=== PATIENT | female | born 1960 | race Caucasian/White ===

== ENCOUNTER 2021-06-18 07:34 | Day surgery (SDC) | payer MEDICARE, MEDICAID, SELFPAY ==
--- NOTE | 2021-06-18 07:45 | EKG12_ITS ---
Test Reason : PREOP Blood Pressure : / mmHG Vent. Rate : 068 BPM Atrial Rate : 068 BPM P-R Int : 176 ms QRS Dur : 088 ms QT Int : 444 ms P-R-T Axes : 051 145 080 degrees QTc Int : 472 ms Normal sinus rhythm Low voltage QRS Confirmed by ADAM MARIE, LUZ MARINA ([id number]), rewrite editor HALI SNYDER ([id number]) on 06/21/2021 7:08:45 AM Referred By: Denys Vasquez Confirmed By:LUZ MARINA MEDINA MD
[2021-06-18 08:03] VITALS: BP 169/96; PULSE 66; RESP 18; TEMP 36.1; O2SAT 100; BMI 37.4
[2021-06-18] MEDS: Ciprofloxacin 0.3% 2.5ml Bottle 1 DRP (09:43)
--- NOTE | 2021-06-18 09:47 | PCM.DC ---
Discharge Instructions Diet Discharge Diet: No restrictions Activity Discharge Activity: Return to Normal Activity Dressing / Incision Call your doctor if your incision/area has: Foul Smelling Discharge Additional Dressing/Incision Instructions:: 4 drops to each ear twice daily for three days Follow Up Care Please Follow Up With: Denys Vasquez MD When: 3 weeks Test Results: Test results from this visit will be discussed in further detail at your follow-up appointment, if applicable. Discharge Plan Admission Attending Provider: Denys Vasquez Primary Care Provider: Paula Rod Discharge Orders/Prescriptions Prescriptions: No Action naproxen 375 mg tablet 375 mg PO DAILY RF: 0 nicotine 14 mg/24 hr patch 24 hour 1 patch transdermal DAILY RF: 0 albuterol sulfate 2.5 mg /3 mL (0.083 %) solution for nebulization 2.5 mg continuous nebulization DAILY PRN PRN (Reason: breathing) RF: 0 tizanidine 4 mg tablet 4 mg PO DAILY PRN PRN (Reason: muscle relaxant) RF: 0 sumatriptan succinate 100 mg tablet 100 mg PO DAILY PRN PRN (Reason: Headache) RF: 0 ropinirole 3 mg tablet 3 mg PO 4X/DAY RF: 0 lorazepam 0.5 mg tablet 0.5 mg PO DAILY PRN PRN (Reason: Anxiety) RF: 0 meclizine 25 mg tablet 25 mg PO DAILY PRN PRN (Reason: Vertigo) RF: 0 levothyroxine 200 mcg tablet 200 mcg PO DAILY RF: 0 albuterol sulfate 90 mcg/actuation HFA aerosol inhaler 1 puff INHALATION DAILY RF: 0 fluoxetine 20 mg capsule 60 mg PO DAILY RF: 0 Myrbetriq 50 mg tablet extended release 24 hr 50 mg PO DAILY RF: 0 Trelegy Ellipta 200-62.5-25 mcg blister with device 1 ea INHALATION DAILY RF: 0 Disposition Discharge Orders: Discharge Patient (Routine); Ordered 06/18/21 Ordered By: Dr. Denys Vasquez
--- NOTE | 2021-06-18 09:48 | PCM.OPRPT ---
Problems Associated Problem List Diagnoses (1) Chronic serous OM (otitis media): Report of Operation Date of Procedure: 06/18/21 Pre-Operative Diagnosis: chronic serous otitis media, right and left Post-Operative Diagnosis: chronic serous otitis media, right and left Surgery/Procedure Performed:: placement pressure equalization tubes, right and left ears Surgeon: Denys Vasquez Type of Anesthesia: General Description of Procedure: on the day of the procedure, after appropriate informed consent was obtained, the patient was brought to the operating room and placed in supine position on the operating table. she was placed under general intravenous anesthesia, and an LMA was placed. the left ear was examined with the binocular operating microscope. a speculum was placed. the tympanic membrane was viewed in its entirety and found to be intact. a radial myringotomy was made inferiorly and a serous effusion was suctioned. a T tube was placed. the right ear was examined with the binocular operating microscope. a speculum was placed. the tympanic membrane was viewed in its entirety and found to be intact. a radial myringotomy was made inferiorly and a serous effusion was suctioned. a T tube was placed. she was awoken from anesthesia and transferred to the PACU in stable condition.
[2021-06-18 10:00] VITALS: BP 129/95; BP 169/96; PULSE 71; RESP 16; TEMP 36.3; O2SAT 99
[2021-06-18 10:15] VITALS: BP 120/83; BP 169/96; PULSE 74; RESP 16; TEMP 36.3; O2SAT 100
[2021-06-18 10:38] VITALS: BP 169/96
== END 2021-06-18 10:51 | disposition home or self-care (01) ==
LOC: SDC 07:43 → AC 07:43
PROVIDERS: PCP Family Medicine; Referring Provider Otolaryngology; Visit Provider Otolaryngology
PROC: (CPT 69799; principal; 2021-06-18 08:55)
DX: H65.23 Chronic serous otitis media, bilateral (principal); H69.83 Other specified disorders of Eustachian tube, bilateral; H90.6 Mixed conductive and sensorineural hearing loss, bilateral; E07.9 Disorder of thyroid, unspecified; J44.9 Chronic obstructive pulmonary disease, unspecified; M19.90 Unspecified osteoarthritis, unspecified site; F31.9 Bipolar disorder, unspecified; F20.9 Schizophrenia, unspecified; F17.210 Nicotine dependence, cigarettes, uncomplicated; Z20.822 Contact with and (suspected) exposure to COVID-19; Z99.81 Dependence on supplemental oxygen; Z79.899 Other long term (current) drug therapy; Z86.73 Personal history of transient ischemic attack (TIA), and cerebral infarction without residual deficits
CPT/HCPCS: 00126; 69436; 87426; 93005; C9803; J7120

== ENCOUNTER 2021-06-24 05:41 | Emergency (ER) | payer MEDICARE, MEDICAID, SELFPAY ==
[2021-06-24 05:42] VITALS: PULSE 103; RESP 14; TEMP 36.3; O2SAT 93; BMI 37.0
--- NOTE | 2021-06-24 05:56 | RAD_ITS ---
STUDY: X-RAY CHEST REASON FOR EXAM: Female, 60 years old patient with dyspnea. TECHNIQUE: Single AP portable view of the chest. COMPARISON: Prior comparison studies are not available for review at this time. FINDINGS: Cardiac monitoring leads are present. The lungs are expanded. There is mild prominence of bronchovascular markings. There is questionable left-sided pleural effusion. There is heterogeneous right basilar airspace disease. There is mild cardiac enlargement. Normal mediastinum and tony. Normal visualized pulmonary arteries. Normal visualized aortic arch and descending thoracic aorta. Normal visualized thoracic spine. There are old left-sided rib fractures. There is no demonstrated abnormality of the visualized soft tissue structures of the upper abdomen. RAD/Chest 1 View (Portable) IMPRESSION: 1. Right basilar airspace disease could represent pneumonia. 2. Cardiomegaly. Electronically Signed: Janet Damon MD at 6:43 EDT , Service support ,
--- NOTE | 2021-06-24 05:56 | EKG12_ITS ---
Test Reason : SOB Blood Pressure : / mmHG Vent. Rate : 103 BPM Atrial Rate : 096 BPM P-R Int : 192 ms QRS Dur : 090 ms QT Int : 424 ms P-R-T Axes : 000 121 088 degrees QTc Int : 555 ms Sinus Rhythm Otherwise normal ECG Confirmed by MARYLOU MARIE, KILEY ([id number]), proposal editor MAXI MONCADA ([id number]) on 06/25/2021 2:02:48 PM Referred By: ÁLVARO Confirmed By:KILEY HICKMAN MD
--- NOTE | 2021-06-24 05:57 | EDS_ITS ---
HPI History of Present Illness Chief Complaint: Shortness of Breath Detail of Chief Complaint: Shortness of breath that started 3 4 days ago. Informant: patient Narrative Narrative: Patient presents to the emergency department from home with complaint of increasing shortness of breath over the last 3 to 4 days. Patient has history of COPD and thinks she has a flare. Patient normally on 3 L of O2 at home. He has had minimal cough. She denies fever. She denies chest pain. Patient has not had the Covid vaccine. She denies any exposures to Covid. She denies recent travel or surgery. On EMS arrival patient was noted to be 95% on her 3 L. Patient was given a aerosol by squad as well as Solu-Medrol 125 mg IV. Patient also complaining of restless legs and states that she has been without her medication and is having hard time sleeping. Prior similar symptoms: [facility] Medical History (Updated 06/24/21 @ 06:[address] Celso Navarro, DO) Arthritis Bipolar disorder COPD (chronic obstructive pulmonary disease) Easy bruising Edentulous Excessive bleeding Gastric reflux History of edema History of electroconvulsive therapy History of IBS History of stress test Lupus Migraine headache Nicotine dependence On home oxygen therapy Schizophrenia Shortness of breath on exertion Stroke/cerebrovascular accident TBI (traumatic brain injury) Thyroid disease TIA (transient ischemic attack) Uses wheelchair Wears glasses Home Medications albuterol sulfate 1 puff INHALATION DAILY 06/12/21 [History Last Taken Unknown] albuterol sulfate 2.5 mg CONTINUOUS NEBULIZATION DAILY PRN PRN 06/12/21 [History Last Taken Unknown] fluoxetine 60 mg PO DAILY 06/12/21 [History Last Taken Unknown] aqlkkshrynu-krruzomdz-tnodwili [Trelegy Ellipta] 1 ea INHALATION DAILY 06/12/21 [History Last Taken Unknown] levothyroxine 200 mcg PO DAILY 06/12/21 [History Last Taken 06/18/21 04:00] lorazepam 0.5 mg PO DAILY PRN PRN 06/12/21 [History Last Taken Unknown] meclizine 25 mg PO DAILY PRN PRN 06/12/21 [History Last Taken Unknown] mirabegron [Myrbetriq] 50 mg PO DAILY 06/12/21 [History Last Taken Unknown] naproxen 375 mg PO DAILY 06/12/21 [History Last Taken Unknown] nicotine 1 patch TRANSDERMAL DAILY 06/12/21 [History Last Taken Unknown] ropinirole 3 mg PO 4X/DAY 06/12/21 [History Last Taken Unknown] sumatriptan succinate 100 mg PO DAILY PRN PRN 06/12/21 [History Last Taken Unknown] tizanidine 4 mg PO DAILY PRN PRN 06/12/21 [History Last Taken Unknown] doxycycline monohydrate 100 mg PO BID #14 capsule 06/24/21 [Rx Last Taken Unknown] prednisone 20 mg PO BID #10 tab 06/24/21 [Rx Last Taken Unknown] ropinirole 4 mg PO TID #90 tab 06/24/21 [Rx Last Taken Unknown] Allergy/AdvReac Type Severity Reaction Status Date / Time morphine Allergy PT UNSURE Verified 06/12/21 14:38 OF REACTION Penicillins [PCN] Allergy PT UNSURE Verified 06/12/21 14:38 OF REACTION Surgical History (Updated 06/12/21 @ 14:49 by Jenn iFnney) History of History of myringotomy History of neck surgery History of surgery on arm History of surgery on wrist History of tonsillectomy Social History Smoking Status: Current every day smoker tobacco type: cigarettes ROS ROS ED Constitutional Constitutional ED: Reports systems reviewed and no addt'l complaints, except as documented; Denies body ache(s), change in weight or chills Eyes Eyes: Denies acute decrease in peripheral vision, change in vision, double vision or loss of vision ENT ENT ED: Reports none; Denies ear pain, lip swelling, loss taste/smell, neck pain, otalgia or sore throat Cardiovascular Cardiovascular: Reports none; Denies abdominal pain, chest pain with activity, leg edema, lightheadedness, palpitations, rapid heart rate or syncope Respiratory/Chest Respiratory/Chest: Reports none, cough and dyspnea; Denies change in mental status, dry cough, hemoptysis, shortness of breath at rest or shortness of breath with exertion Gastrointestinal Gastrointestinal: Reports none; Denies abdominal pain, change in stool character, diarrhea, hematemesis, hematochezia, melena, rectal bleeding or vomiting Genitourinary Genitourinary ED: Reports none; Denies abdominal discomfort, anuria, dysuria, genital pain or polyuria Musculoskeletal Musculoskeletal: Reports none; Denies arthralgias, back pain, difficulty walking, extremity pain, muscle weakness or myalgias Integumentary Reports none; Denies abscess or rash Neurologic Neurologic: Reports none; Denies abnormal gait, confusion, focal weakness, frequent falls, headache(s), loss of vision, numbness, paresthesias, radicular pain, vertigo or weakness Psychiatric Psychiatric: Reports systems reviewed and no addt'l complaints, except as documented and none; Denies behavioral changes, confusion, difficulty concentrating, hallucinations, suicidal ideation, tactile hallucinations or visual hallucinations Endocrine Endocrinology: Denies none, cold intolerance, excessive sweating, fatigue or heat intolerance Hematologic/Lymphatic Hematologic/Lymphatic: Reports none; Denies anemia, easy bleeding or easy bruising Allergic/Immunologic Allergic/Immunologic ED: Denies as per HPI, none, lip swelling, mouth swelling, throat swelling, tongue swelling or hives EXAM Physical Exam Const Vital Signs: 06/24/21 05:42 06/24/21 05:50 06/24/21 06:02 Temperature 97.4 F L 97.4 F L Temperature Source Temporal Temporal Pulse Rate 103 H 103 H Respiratory Rate 14 14 Respiratory Pattern Tachypnea Blood Pressure 163/104 H Blood Pressure Mean 123 Pulse Ox 93 93 Oxygen Delivery Method Nasal Cannula Nasal Cannula Oxygen Flow Rate (L/min) 3 3 06/24/21 06:14 Temperature Temperature Source Pulse Rate 99 Respiratory Rate 20 H Respiratory Pattern Blood Pressure Blood Pressure Mean Pulse Ox Oxygen Delivery Method Oxygen Flow Rate (L/min) Positive well nourished and well developed General Appearance ED: well developed and NAD HEENT Reports TM's clear and moist mucous membranes normocephalic and atraumatic; Negative for trauma or tenderness Tympanic Membrane ED: Yes TM's clear Eyes PERRL and EOMs intact bilaterally General Eye ED: Negative for pale conjunctiva or scleral icterus Neck no lymphadenopathy, supple and no JVD General: Negative for tenderness Chest Wall inspection of chest normal and palpation of chest normal Chest: Negative for tenderness Resp clear to auscultation bilaterally Resp Narrative: Patient with tachypnea and some mild conversational dyspnea. No accessory muscle use or retractions. Effort and Inspection: Negative for respiratory distress or pain with movement Auscultation: wheezes; Negative for rhonchi or diminished lung sounds Cardio regular rate, regular rhythm, S1 normal heart sound, S2 normal heart sound and no murmurs Peripheral Pulses: pulses 2+ throughout GI normal to inspection, nondistended, normoactive bowel sounds, soft to palpation, non-tender, non-distended and no masses Back/Spine no CVA tenderness and no thoracic nor lumbar tenderness Extremity normal to inspection General Extremety ED: Negative for edema General Extremity: Negative for edema Neuro oriented x3, CN's II-XII intact bilaterally, no sensory deficits noted and gait normal Sensorium / Orientation: awake, alert, oriented to person, oriented to place and oriented to time Motor Exam: strength 5/5 throughout and strength abnormal Psych mental status grossly normal Skin no rashes or lesions noted and no wounds MDM MDM MDM Narrative Medical decision making narrative: Patient received DuoNeb aerosol on arrival. Patient had received Solu-Medrol by EMS. EKG obtained showed sinus tachycardia with a ventricular rate of 103 bpm with no acute ST segment changes. Because of the patient's respiratory effort and the fact that she would not sit there was a lot of artifact noted. Labs were unremarkable. COVID-19 test was negative. I suspect patient likely has a COPD exacerbation. She will be started on doxycycline and prednisone. Patient also ran out of her repair and all and will be given a prescription for that. Patient to follow-up with her primary care physician 3 to 5 days. She is advised to return if increasing shortness of breath or condition should worsen anyway. On repeat examination she was feeling improved. She is in no respiratory distress. I feel she can be safely discharged to home. She is advised to return if increasing shortness of breath or condition worsen anyway. Lab Data Attestation: I reviewed the patient's lab results. Labs: Laboratory Results - last 24 hr 06/24/21 06/24/21 05:15 05:15 WBC 8.5 RBC 3.40 L Hgb 10.7 L Hct 32.7 L MCV 96.2 MCH 31.5 MCHC 32.7 RDW Std Deviation 46.6 H RDW Coeff of Joby 13.2 Plt Count 313 MPV 8.8 Immature Gran % (Auto) 0.200 Neut % (Auto) 63.6 Lymph % (Auto) 23.6 [place] % (Auto) 7.3 Eos % (Auto) 4.6 Baso % (Auto) 0.7 Absolute Neuts (auto) 5.4 Absolute Lymphs (auto) 2.01 Nucleated RBC % 0 Sodium 135 L Potassium 4.2 Chloride 99 Carbon Dioxide 31.0 Anion Gap 5 BUN 23 H Creatinine 1.32 H Estim Creat Clear Calc 36.74 Est GFR (MDRD) Af Amer 53 L Est GFR (MDRD) Non-Af 44 L BUN/Creatinine Ratio 17.4 Glucose 98 Calcium 9.0 Troponin I High Sens 8 Radiography Chest X-Ray - ED: 1 View Diagnostic Testing: Radiology Impression Chest X-Ray 06/24/21 05:56 IMPRESSION: 1. Right basilar airspace disease could represent pneumonia. 2. Cardiomegaly. Electronically Signed: Janet Damon MD at 6:43 EDT , Service support , 1 view chest x-ray obtained interpreted by myself as no acute disease process. Radiologist felt patient may have a right basilar airspace disease which could represent pneumonia. EKG Initial EKG: Attestation: I personally reviewed and interpreted this EKG as follows: Comments: Sinus rhythm with a ventricular rate of 103 bpm with no acute ST segment changes. Discharge Plan Triage Chief Complaint: Shortness of Breath ED Provider: Celso Navarro Dx/Rx/DC Orders Clinical Impression: COPD exacerbation, Restless legs syndrome Prescriptions: New doxycycline monohydrate 100 MG capsule 100 mg PO BID Qty: 14 RF: 0 prednisone 20 mg tablet 20 mg PO BID Qty: 10 RF: 0 ropinirole 4 mg tablet 4 mg PO TID Qty: 90 RF: 0 No Action naproxen 375 mg tablet 375 mg PO DAILY RF: 0 nicotine 14 mg/24 hr patch 24 hour 1 patch transdermal DAILY RF: 0 albuterol sulfate 2.5 mg /3 mL (0.083 %) solution for nebulization 2.5 mg continuous nebulization DAILY PRN PRN (Reason: breathing) RF: 0 tizanidine 4 mg tablet 4 mg PO DAILY PRN PRN (Reason: muscle relaxant) RF: 0 sumatriptan succinate 100 mg tablet 100 mg PO DAILY PRN PRN (Reason: Headache) RF: 0 ropinirole 3 mg tablet 3 mg PO 4X/DAY RF: 0 lorazepam 0.5 mg tablet 0.5 mg PO DAILY PRN PRN (Reason: Anxiety) RF: 0 meclizine 25 mg tablet 25 mg PO DAILY PRN PRN (Reason: Vertigo) RF: 0 levothyroxine 200 mcg tablet 200 mcg PO DAILY RF: 0 albuterol sulfate 90 mcg/actuation HFA aerosol inhaler 1 puff INHALATION DAILY RF: 0 fluoxetine 20 mg capsule 60 mg PO DAILY RF: 0 Myrbetriq 50 mg tablet extended release 24 hr 50 mg PO DAILY RF: 0 Trelegy Ellipta 200-62.5-25 mcg blister with device 1 ea INHALATION DAILY RF: 0 Primary Care Provider: Paula Rod Referrals: Paula Rod DO [Primary Care Provider] - 3-5 Days Disposition Disposition: Home, Self Care
[2021-06-24 06:02] VITALS: BP 163/104; PULSE 103; RESP 14; TEMP 36.3; O2SAT 93
[2021-06-24] MEDS: Pramipexole Di-HCl 0.5 MG Tablet 1.5 MG PO (06:08)
[2021-06-24] MEDS: Ipratropium/Albuterol Sulfate 3 ML AMPUL.NEB INHALATION (06:13)
[2021-06-24 06:14] VITALS: PULSE 99; RESP 20
[2021-06-24 06:18] LABS: Absolute Lymphocyte Count 2.01 X10^3/uL (0.83-4.51); Absolute Neutrophil Count 5.4 X10^3/uL (2.0-7.7); Basophil# 0.06 X10^3/uL; Basophil% 0.7 % (0-1); Eosinophil# 0.39 X10^3/uL; Eosinophils% 4.6 % (0-5); Hematocrit 32.7 % (37-47); Hemoglobin 10.7 g/dL (12.0-15.0); Lymphocyte # 2.01 X10^3/ul (0.83-4.51); Lymphocyte % 23.6 % (19-41); Mean Corp Hgb Conc 32.7 g/dL (32-36); Mean Corpuscular Hgb 31.5 pg (27.0-32.0); Mean Corpuscular Volume 96.2 fL (81-99); Mean Platelet Vol. 8.8 fl (6.2-12.0); Monocyte# 0.62 X10^3/uL; Monocyte% 7.3 % (0-10); NRBC Flagged by Analyzer 0 % (0-5); Neutrophil # 5.43 X10^3/uL (2.7-7.7); Neutrophil % 63.6 % (47-70); Platelet Count 313 K/mm3 (150-450); RBC Distribution Width CV 13.2 % (11.6-14.6); RBC Distribution Width SD 46.6 fl (35.1-43.9); White Blood Count 8.5 K/mm3 (4.4-11.0)
[2021-06-24 06:32] LABS: Anion Gap 5 (5-15); BUN 23 mg/dL (7-18); BUN/Creat Ratio 17.4 RATIO (10-20); Chloride 99 mmol/L (98-107); Creatinine, Serum 1.32 mg/dL (0.55-1.02); EST Glomerular Filtration Rate 44 mL/min (>60); Est Glom Filt Rate - Afr Amer 53 mL/min (>60); Estimated Creatinine Clearance 36.74 ml/min; Glucose 98 mg/dL (74-106); Potassium 4.2 mmol/L (3.5-5.1); Sodium Level 135 mmol/L (136-145); Troponin-I HS 8 pg/mL (3.0-54.0)
[2021-06-24] MEDS: Albuterol 2.5 MG/3 ML VIAL.NEB. INHALATION ×2 (06:58)
[2021-06-24 07:01] VITALS: PULSE 95; RESP 15
--- NOTE | 2021-06-24 07:26 | NURSING ---
CALLED [facility], ETA IS 30
[2021-06-24] MEDS: Doxycycline 100 MG CAPSULE PO (07:29)
[2021-06-24 07:42] VITALS: BP 130/95; PULSE 101; RESP 24; O2SAT 100
== END 2021-06-24 07:43 | disposition home or self-care (01) ==
PROVIDERS: Emergency Provider Emergency Medicine; PCP Family Medicine
DX: J44.1 Chronic obstructive pulmonary disease with (acute) exacerbation (principal); G25.81 Restless legs syndrome; K21.9 Gastro-esophageal reflux disease without esophagitis; M19.90 Unspecified osteoarthritis, unspecified site; F31.9 Bipolar disorder, unspecified; Z79.52 Long term (current) use of systemic steroids; F17.210 Nicotine dependence, cigarettes, uncomplicated; Z99.81 Dependence on supplemental oxygen; Z79.899 Other long term (current) drug therapy; Z86.73 Personal history of transient ischemic attack (TIA), and cerebral infarction without residual deficits
CPT/HCPCS: 71045; 80048; 84484; 85025; 87426; 93005; 94640; 99285

== ENCOUNTER 2021-10-31 15:59 | Emergency (ER) | payer MEDICARE, MEDICAID, SELFPAY ==
[2021-10-31] VITALS (7 sets, daily range): BP systolic 112–136; BP diastolic 82–97; PULSE 50–64; RESP 12–22; TEMP -17.7–33.4; O2SAT 97–100
[2021-10-31] MEDS: Etomidate 20 MG/10 ML Vial IV (16:14)
[2021-10-31] MEDS: Rocuronium Bromide 50 MG/5 ML Vial 80 MG IV (16:15)
--- NOTE | 2021-10-31 16:19 | EKG12_ITS ---
Test Reason : BURN Blood Pressure : / mmHG Vent. Rate : 062 BPM Atrial Rate : 062 BPM P-R Int : 166 ms QRS Dur : 092 ms QT Int : 492 ms P-R-T Axes : 044 112 038 degrees QTc Int : 499 ms Normal sinus rhythm Low voltage QRS Borderline ECG Confirmed by MARYLOU MARIE, KILEY ([id number]), newspaper or periodical editor HALI SNYDER ([id number]) on 11/04/2021 11:52:56 AM Referred By: TL Confirmed By:KILEY HICKMAN MD
[2021-10-31] MEDS: Lactated Ringers 1,000 ML 999 ML IV (16:20)
--- NOTE | 2021-10-31 16:25 | NURSING ---
[facility], [facility], CALLED. PATIENT GOING TO [facility] ETA IS 1 HR
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
--- NOTE | 2021-10-31 16:30 | ED.RN ---
perr dr Paul warm blankets applied to try to warm patient up, states not to bother with bear hugger since patient will be leaving soon.
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
--- NOTE | 2021-10-31 16:30 | NURSING ---
GOING TO [facility]
[2021-10-31] MEDS: Propofol 10MG/Ml 1,000 MG/100 ML Bottle 6.3 MG CONT INF (16:40)
[2021-10-31 16:57] LABS: Absolute Lymphocyte Count 0.69 X10^3/uL (0.83-4.51); Absolute Neutrophil Count 2.2 X10^3/uL (2.0-7.7); Basophil# 0.02 X10^3/uL; Basophil% 0.6 % (0-1); Eosinophil# 0.08 X10^3/uL; Eosinophils% 2.5 % (0-5); Hematocrit 34.9 % (37-47); Hemoglobin 10.9 g/dL (12.0-15.0); Lymphocyte # 0.69 X10^3/ul (0.83-4.51); Lymphocyte % 21.6 % (19-41); Mean Corp Hgb Conc 31.2 g/dL (32-36); Mean Corpuscular Hgb 30.2 pg (27.0-32.0); Mean Corpuscular Volume 96.7 fL (81-99); Mean Platelet Vol. 9.4 fl (6.2-12.0); Monocyte% 6.3 % (0-10); NRBC Flagged by Analyzer 0 % (0-5); Neutrophil # 2.18 X10^3/uL (2.7-7.7); Neutrophil % 68.4 % (47-70); Platelet Count 166 K/mm3 (150-450); RBC Distribution Width CV 13.2 % (11.6-14.6); RBC Distribution Width SD 47.3 fl (35.1-43.9); Red Blood Count 3.61 M/mm3 (4.2-5.4); White Blood Count 3.2 K/mm3 (4.4-11.0)
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
[2021-10-31 17:11] LABS: Prothrombin Time (Protime)PT. 12.2 SECONDS (11.7-14.9)
[2021-10-31 17:12] LABS: Partial Thromboplast Time 33.3 Seconds (24.1-36.2)
[2021-10-31] MEDS: Diphth,Pertuss(Acell),Tet Vac 0.5 ML Vial IM (17:13)
[2021-10-31 17:20] LABS: Allen Test Positive; Base Excess 12 mmol/L (-2 to +2); Bicarbonate 36.6 mmol/L (22-26); Blood Gas Specimen Type ART; FI02 50; Mode AC; O2 Delivery Device Adult Vent; PEEP 5; PO2 87 mmHG (75-100); RR 14; SITE L Radial; SO2 96 % (95-99); Total Carbon Dioxide 39 mmol/L; Vt 400; pCO2 61.6 mmHg (35-45); pH 7.38 (7.35-7.45)
--- NOTE | 2021-10-31 17:25 | ED.RN ---
spoke with Jimenez Leija- patient legal guardian- consent to treat and transfer obtain and he was updated on patients status. [phone]
--- NOTE | 2021-10-31 17:42 | ED.RN ---
[facility] flight team at bedside. report given.
[2021-10-31 17:54] LABS: Lactic Acid 1.9 mmol/L (0.4-1.9)
--- NOTE | 2021-10-31 18:07 | ED.RN ---
[facility] request c-collar for patient, their team applied c-collar. assisted them with getting patient on their cot.
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
[2021-10-31 18:35] LABS: ALB/GLOB Ratio 1.1 RATIO (0.9-2.4); AST(SGOT) 117 U/L (15-37); Alanine Aminotransfer ALT/SGPT 60 U/L (13-56); Albumin, Serum 3.1 g/dL (3.2-5.0); Alkaline Phosphatase 53 U/L (45-117); Anion Gap 5 (5-15); BUN 22 mg/dL (7-18); BUN/Creat Ratio 25.6 RATIO (10-20); CPK Total, Creatine Kinase 4503 U/L (26-192); Calcium,Total 8.4 mg/dL (8.5-10.1); Chloride 95 mmol/L (98-107); Creatinine, Serum 0.86 mg/dL (0.55-1.02); EST Glomerular Filtration Rate 72 mL/min (>60); Est Glom Filt Rate - Afr Amer 87 mL/min (>60); Estimated Creatinine Clearance 116.31 ml/min; Globulin 2.8 g/dL (2.2-4.2); Glucose 122 mg/dL (74-106); Magnesium 2.3 mg/dL (1.6-2.6); Phosphorus 3.6 mg/dL (2.5-4.9); Potassium 3.6 mmol/L (3.5-5.1); Protein, Total 5.9 g/dL (6.4-8.2); Sodium Level 134 mmol/L (136-145)
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
== END 2021-10-31 18:09 | disposition other institution (70) ==
PROVIDERS: Emergency Provider Emergency Medicine; PCP Family Medicine; Visit Provider Emergency Medicine
DX: T20.00XA Burn of unspecified degree of head, face, and neck, unspecified site, initial encounter (principal); F20.9 Schizophrenia, unspecified; M32.9 Systemic lupus erythematosus, unspecified; J44.9 Chronic obstructive pulmonary disease, unspecified; F31.9 Bipolar disorder, unspecified; J96.00 Acute respiratory failure, unspecified whether with hypoxia or hypercapnia; T79.6XXA Traumatic ischemia of muscle, initial encounter; T20.29XA Burn of second degree of multiple sites of head, face, and neck, initial encounter; X08.8XXA Exposure to other specified smoke, fire and flames, initial encounter; Y93.89 Activity, other specified; Y99.8 Other external cause status; Y92.038 Other place in apartment as the place of occurrence of the external cause; F79 Unspecified intellectual disabilities; F17.210 Nicotine dependence, cigarettes, uncomplicated; Z99.81 Dependence on supplemental oxygen; Z86.73 Personal history of transient ischemic attack (TIA), and cerebral infarction without residual deficits; Z87.820 Personal history of traumatic brain injury
CPT/HCPCS: 31500; 36600; 51702; 71045; 80053; 82550; 82803; 83605; 83735; 84100; 85025; 85610; 85730; 87426; 90715; 93005; 94002; 96365; 96368; 99251; 99285; J7030; J7120; A4216; G0463; J3010